=== PATIENT | female | born 1975 | race African-American/Black ===

== ENCOUNTER 2018-01-08 19:46 | Emergency (ER) | payer OTHER ==
[~2018-01-08] VITALS: Ht 154.9 cm; Wt 81.2 kg
[~2018-01-08 19:46] MED LIST: PRENATAL
[2018-01-08] MEDS ORDERED: IBUPROFEN 600600 M1 PO (20:50)
[2018-01-08] MEDS ORDERED: FLONASE 0.05%50 MCG NASAL (20:50)
== END 2018-01-08 21:08 | disposition home or self-care (01) ==
LOC: ER 19:46
DX: J06.9 Acute upper respiratory infection, unspecified (principal); J34.89 Other specified disorders of nose and nasal sinuses